=== PATIENT | female | born 1980 | race Caucasian/White ===

== ENCOUNTER 2021-09-26 16:43 | Emergency (ER) | payer OTHER, BC ==
[2021-09-26] MEDS ORDERED: Amoxicillin/Potassium Clav 875 MG TAB ONE (17:21)
[2021-09-26] MEDS ORDERED: Boostrix 0.5 ML (Tdap) VIAL ONE (17:21)
[2021-09-26] MEDS ORDERED: Bacitracin 1 PK ONE (17:21)
== END 2021-09-26 16:55 | disposition home or self-care (01) ==
LOC: MADERS 16:43
DX: S61.011A Laceration without foreign body of right thumb without damage to nail, initial encounter (principal); F17.210 Nicotine dependence, cigarettes, uncomplicated; W54.0XXA Bitten by dog, initial encounter; Z23 Encounter for immunization
CPT/HCPCS: 90471; 90715